=== PATIENT | female | born 1975 | race Caucasian/White ===

== ENCOUNTER 2022-07-16 14:26 | Emergency (ER) | payer MEDICAID ==
[~2022-07-16] VITALS: Ht 162.6 cm; Wt 68.0 kg
[2022-07-16 14:32] VITALS: BP 141/88
--- NOTE | 2022-07-16 16:11 | NUR ---
PT AMBULATED TO BED 01.
--- NOTE | 2022-07-16 16:26 | NUR ---
47 y/o female bib self with c/o LLQ pain x 2 days. Patient has nausea, vomiting and weakness. Denies diarrhea, fever or chills. Denies being around anyone who is sick or new foods. Patient is also complaining of headache. Patient has 6/10 pulsating pain. Medical History: DM, Gastritis NKDA
--- NOTE | 2022-07-16 16:54 | NUR ---
Dr. Gandhi evaluating patient at bedside.
[2022-07-16] MEDS ORDERED: KETOROLAC 60 MG/2 ML VIAL IM ONE (17:10)
[2022-07-16] MEDS ORDERED: IBUP-2213 PO (17:44)
[2022-07-16] MEDS ORDERED: MAGN296S2 PO (17:44)
[2022-07-16 18:06] VITALS: BP 141/86
--- NOTE | 2022-07-16 18:06 | NUR ---
Patient discharged with v/s stable. Written and verbal after care instructions given. Patient alert, oriented and verbalized understanding of instructions. Ambulatory with steady gait. All questions addressed prior to discharge. ID band removed. Patient advised to follow up with PMD. Rx of Ibuprofen and Magnesium Citrate given. Opportunity to ask questions provided and answered.
== END 2022-07-16 18:06 | disposition home or self-care (01) ==
LOC: MED 14:26
DX: K59.00 Constipation, unspecified (principal)
CPT/HCPCS: 81002; 81025; 96372; 99283; J1885